=== PATIENT | male | born 1995 | race Hispanic/Latino ===

== ENCOUNTER 2024-09-13 10:12 | Emergency (ER) | payer SELFPAY ==
[~2024-09-13] VITALS: Ht 172.7 cm; Wt 157.9 kg
[2024-09-13 11:18] VITALS: BP 160/100; PULSE 82; RESP 16; TEMP 98; O2SAT 98
[2024-09-13 11:52] LABS: SARS-CoV-2, RNA, NAAT NEGATIVE SARS CoV-2 (NEGATIVE)
--- NOTE | 2024-09-13 12:08 | ERN ---
General Chief Complaint: Cough Stated Complaint: DIZZINESS,COUGH,HEADACHE,STUFFY NOSE Time Seen by MD: 10:51 Time Seen by Midlevel: 10:51 Source: patient History of Present Illness Initial Comments Patient is a 29-year-old male with a past medical history of hypertension presenting to the ER for evaluation of flu-like symptoms. According to patient, he developed cough, congestion, and a headache last night. He did not want to come in today however his forced him to come to the ER to get himself evaluated. Patient states he feels fine but just feels like he was coming down with a virus. He specifically denies any chest pain, shortness of breath, focal weakness, or any other symptoms at this time. Allergies: Coded Allergies: No Known Allergies (Unverified Allergy, Unknown, 09/13/24) Home Meds Active Scripts Amoxicillin/Potassium Clav (Amox Tr-K Clv 875-125 mg Tab) 875 Mg-125 Mg Tablet, 1 EACH PO BID for 10 Days, #20 TAB 0 Refills Prov:ALONZO SINHA 09/13/24 Past Medical History Past Medical History: Diabetes-Type II, High Cholesterol, Hypertension Past Surgical History: None ROS Dictation CONSTITUTIONAL: Negative except for HPI HEAD/FACE: Negative except for HPI EENT: Negative except for HPI RESPIRATORY: Negative except for HPI GASTROINTESTINAL/ABDOMINAL: Negative except for HPI GENITOURINARY: Negative except for HPI MUSCULOSKELETAL: Negative except for HPI INTEGUMENTARY: Negative except for HPI NEUROLOGICAL/PSYCH: Negative except for HPI HEMATOLOGIC/LYMPHATIC: Negative except for HPI All Systems Negative, Except as noted above. 13 point review of systems assessed and all negative except for above. Physical Exam Physical Exam Dictation Vital Signs reviewed General Appearance: Alert, oriented x 3, no acute distress, well developed, nourished. Head and Face: non-traumatic. Eyes: PERRL, pink conjunctivas, eyelid no trauma, anterior chamber with arcus senilis. Ears: Pinnas intact and no signs of trauma or erythema ear canals clear and no discharge TM no erythema Nose: No discharge, no bleeding. Oropharynx: Mouth normal, tongue pink, pharynx clear,no erythema, tonsils no exudates, no abscesses noted, mucous membrane moist Neck: Supple, non-tender, no thyromegaly, no masses, no JVD, no bruits Breast:Deferred Chest:No tenderness, no crepitus, no paradoxical movement, no retractions Lungs:Clear, well-ventilated, symmetric, no rales, no wheezing, no rhonchi, no stridor, good breath sounds bilaterally Heart: Regular rate, regular rhythm, no murmur, no gallops Vascular: no peripheral edema, Abdomen: Soft, positive bowel sounds, nondistended, no guarding, nontender, no rebound, no masses no hepatomegaly, no splenomegaly, no Epperson's sign, no hernias. Rectal: Deferred Genital: Deferred Neurological: Normal speech, motor function intact, sensory function intact Musculoskeletal: Neck nontender, full range of motion, back nontender, full range of motion, Extremities: nontender, full range of motion Skin: Color pink, dry, no turgor, no rash, no lacerations, no abrasions, no contusions. Lymphatic: Deferred Results Laboratory and Microbiology Lab and Micro Result Laboratory Tests Test 09/13/24 11:22 Influenza Type A Antigen Negative For Type A Influenza Type B Antigen Negative For Type B SARS-CoV-2, RNA, NAAT NEGATIVE SARS CoV-2 Group A Streptococcus Rapid positive (NEGATIVE) *A Labs Reviewed?: Yes MDM MDM: Patient is a 29-year-old male with a past medical history of hypertension presenting to the ER for evaluation of flu-like symptoms. According to patient, he developed cough, congestion, and a headache last night. He did not want to come in today however his forced him to come to the ER to get himself evaluated. Patient states he feels fine but just feels like he was coming down with a virus. He specifically denies any chest pain, shortness of breath, focal weakness, or any other symptoms at this time. On physical examination patient is in no acute respiratory distress. His O2 saturation is 99% on room air. His lung examination is clear there is no wheezing rhonchi or rales noted. He is nontoxic appearing. Patient was swabbed for flu, COVID, and strep. His respiratory swabs are remarkable for a positive strep test. His initial blood pressure was elevated in the 160 systolic however he reports not taking his blood pressure medication this morning. Patient will be discharged home with antibiotics. Patient was advised to follow up with PCP in 2-3 days for repeat evaluation. Return precautions discussed Differential diagnosis: Viral syndrome, upper respiratory infection, strep pharyngitis There are no social concerns with this patient. Prescription drug management Prescriptions will include: Augmentin Medical management and examination interpretation discussions were had by me with other qualified healthcare professionals as indicated for the patient's care. ED Course Orders Procedure Category Date Status Time Covid Rna Naat LAB 09/13/24 Complete 11:16 Influenza Type A & B, LAB 09/13/24 Complete Rapid 11:16 Rapid (Group A Strep) LAB 09/13/24 Complete 11:16 Vital Signs Date Time Temp Pulse Resp B/P (MAP) Pulse Ox O2 Delivery O2 Flow Rate FiO2 09/13/24 11:18 98.1 82 16 160/100 98 Room Air* 0 21 09/13/24 10:55 97.7 74 20 159/97 98 Room Air DX & DISP Disposition: Discharge Departure Impression: Primary Impression: Strep pharyngitis Condition: Stable Scripts Amoxicillin/Potassium Clav (Amox Tr-K Clv 875-125 mg Tab) 875 Mg-125 Mg Tablet 1 EACH PO BID for 10 Days, #20 TAB 0 Refills Prov: ALONZO SINHA 09/13/24 Additional Instructions: You have tested positive for strep. You will need to take antibiotics for the next 10 days. Please follow up with your PCP in 2-3 days for repeat evaluation. If you develop any new or worsening symptoms please report to the ER for further evaluation. Referrals: NONE (PCP) Time of Disposition: 12:58 I have reviewed the case, and I agree with, Diagnosis and Plan I performed the substantive portion of the visit. I have reviewed and personally made and approve the management plan that is documented in the note by myself or the COLE. I acknowledge for responsibility for the patient's management plan. ALONZO SINHA Sep 13, 2024 12:08 INOCENCIA KING DO Sep 13, 2024 14:55
[2024-09-13 12:12] LABS: INFLUENZA TYPE A Negative For Type A (NEGATIVE); INFLUENZA TYPE B Negative For Type B (NEGATIVE)
[2024-09-13 12:51] LABS: RAPID GROUP A STREP positive (NEGATIVE)
[2024-09-13] MEDS ORDERED: AMOX1TAB16 PO (12:58)
== END 2024-09-13 13:38 | disposition home or self-care (01) ==
LOC: EDH 10:12
DX: J02.0 Streptococcal pharyngitis (principal); E11.9 Type 2 diabetes mellitus without complications; E78.00 Pure hypercholesterolemia, unspecified; I10 Essential (primary) hypertension; Z20.822 Contact with and (suspected) exposure to COVID-19; Z79.899 Other long term (current) drug therapy
CPT/HCPCS: 87635; 87804; 87880; 99283